=== PATIENT | female | born 1975 | race American Indian/Alaskan Native ===

== ENCOUNTER 2016-12-05 14:39 | Emergency (ER) | payer BC ==
[2016-12-05 14:47] VITALS: BP 154/82
--- NOTE | 2016-12-05 15:58 | Emergency Department Report ---
Chief Complaint: Abdominal Pain Stated Complaint: SEVERE STOMACH PAIN Time Seen by Provider: 12/05/16 15:53 - HPI History of Present Illness: Patient is a 41-year-old female who presents to ED complaining of low pelvic generalized abdominal pain. Patient describes pain started 3 days ago describes it as tearing pooling type pain and recent sensitivity and 9 out of 10 intensity patient states walking and movement aggravates the pain patient denies any vaginal bleeding patient states last menstrual period was 2016. Patient states to taking it under milligrams Motrin every 8 hours and not relief in pain. Patient states history of fibroids and has not been to a [facility] doctor in over a year. Patient denies significant other medication. Patient denies nausea vomiting, seizures, chills, shortness of breath, chest pain, fever, diarrhea, vaginal bleeding or discharge. - ROS Review of Systems: As noted in HPI - Exam Vital Signs: Vital Signs 12/05/16 14:44 Temperature 99.2 F Pulse Rate 130 H Blood Pressure 154/82 O2 Sat by Pulse 100 Oximetry Physical Exam: GENERAL: Alert and oriented x3, no apparent distress, Normal Gait, atraumatic. HEAD: Head is normocephalic and a-traumatic. NECK: Supple. Non edematous, No carotid bruits. No lymphadenopathy or thyromegaly. LUNGS: Symetrical with respiration, No wheezing, no rales or crackles, CTAB. HEART: S1, S2 present, regular rate and rhythm without murmur, no rubs, no gallops. ABDOMEN: hardened gravid uterus palpated at umbilicus , nontender,Positive bowel sounds, soft, and non-distended. . tenderness to palpation on lower left pelvic Quadrant, NO CVA tenderness. SKIN: Warm and dry, No lesions, No ulceration or induration present. MSE screening note: Focused history and physical exam performed. Due to findings the following was ordered: ED Medical Decision Making - Medical Decision Making Labs ordered. UA UPT ordered. Pelvic ultrasound ordered. Vital signs stable. Patient is in mild distress due to pain. Patient awaiting to be seen by the physician. ED Disposition for MSE Condition: Stable Instructions: Abdominal Pain (ED)
[2016-12-05 16:45] LABS: Bacteria,Urine 1+ /HPF (Negative); Bilirubin,Urine NEG (Negative); Blood,Urine NEG (Negative); Ketones,Urine TR mg/dL (Negative); Leukocyte Esterase,Urine SM (Negative); Mucus,Urine 1+ /HPF; Nitrite,Urine NEG (Negative); Urobilinogen,Urine < 2.0 mg/dL (<2.0)
--- NOTE | 2016-12-05 18:28 | Ultrasound Report ---
FINAL REPORT PROCEDURE: Transabdominal pelvic ultrasound. TECHNIQUE: Real-time transabdominal sonography in multiple planes of pelvis was performed with image documentation. This examination was performed without Doppler. Vascular abnormalities, including ovarian torsion, will not be detectable without Doppler evaluation. CPT 69813 HISTORY: Pelvic pain. COMPARISON: No prior studies are available for comparison. FINDINGS: The uterus is enlarged measuring 27.6 centimeters x 8.9 centimeters x 13.4 centimeters. The myometrium is inhomogeneous. There are at least 5 focal masses consistent with leiomyomas. The largest is in the uterine fundus measuring 8.6 centimeters in maximum dimension. The endometrial echo complex is poorly defined. Both ovaries appear normal in size. There is a small cyst in the right ovary measuring 2.0 centimeters. There is a small cyst in the left ovary measuring 0.9 centimeters. There is minimal fluid in the cul-de-sac. IMPRESSION: Enlarged uterus with multiple leiomyomas.
--- NOTE | 2016-12-05 18:30 | Ultrasound Report ---
FINAL REPORT PROCEDURE: Transvaginal pelvic ultrasound. TECHNIQUE: Real-time transvaginal sonography in multiple planes of the pelvis was performed with image documentation. This examination was performed without Doppler. Vascular abnormalities, including ovarian torsion, will not be detectable without Doppler evaluation. CPT 78512 HISTORY: Pelvic pain. COMPARISON: No prior studies are available for comparison. FINDINGS: Transvaginal imaging of the uterus is limited because the uterus is too large for the [id number]. The visualized myometrium is inhomogeneous. There are some focal masses consistent with leiomyomas. There are small nabothian cysts in the cervix. The ovaries are suboptimally visualized. IMPRESSION: Limited study due to the large size of the uterus. Uterine leiomyomas.
[2016-12-05] MEDS ORDERED: TYLENOL PO ONE (19:58)
--- NOTE | 2016-12-06 12:55 | ED Elopement Review ---
ED Pt Elopement review - Results review Lab results: Laboratory Tests 12/05/16 12/05/16 16:11 Unknown HCG, Qual TNR Urine Color Yellow Urine Turbidity Clear Urine pH 9.0 H Ur Specific [place] 1.021 Urine Protein 30 mg/dl Urine Glucose (UA) 50 Urine Ketones Tr Urine Blood Neg Urine Nitrite Neg Urine Bilirubin Neg Urine Urobilinogen < 2.0 Ur Leukocyte Esterase Sm Urine WBC (Auto) 18.0 H Urine RBC (Auto) 5.0 U Epithel Cells (Auto) 6.0 Urine Bacteria (Auto) 1+ Urine Mucus 1+ Urine HCG, Qual Negative - Call Back decision Pt Call Back Decision: No action required
== END 2016-12-05 20:55 | disposition left against medical advice (07) ==
LOC: ED 14:39
DX: R10.2 Pelvic and perineal pain (principal); Z53.21 Procedure and treatment not carried out due to patient leaving prior to being seen by health care provider
CPT/HCPCS: 36415; 76830; 76856; 81001; 81025